=== PATIENT | female | born 1970 | race Caucasian/White ===

== ENCOUNTER 2020-02-19 11:34 | Emergency (ER) | payer OTHER, SELFPAY ==
[2020-02-19] VITALS (10 sets, daily range): BP systolic 142–187; BP diastolic 83–100; PULSE 82–135; RESP 17–25; TEMP 37.4–37.6; O2SAT 96–99
--- NOTE | ~2020-02-19 | CT_ITS ---
EXAMINATION: CTA brain carotid DATE: 02/19/2020 12:56 INDICATION: Dizziness. TECHNIQUE: Computed tomographic angiography (CTA) of the head was performed without and with 100 mL O mnipaque-350 intravenous contrast. CTA of the neck was performed with intravenous contrast. The dose- length product was 1722.11 mGy-cm. Maximum intensity projection and volume rendered 3D-reconstruction s were created by the technologist on a separate workstation. COMPARISON: None. FINDINGS: HEAD CTA: There is no intracranial hemorrhage, acute infarction, or abnormal intracranial mass lesion . There are scattered areas of low attenuation in the cerebral white matter, which is within normal l imits for the patient's age. The ventricles are normal in size. There is mild mucosal thickening in t he ethmoid sinuses. The mastoid air cells are normal. The orbits are normal. Right vertebral artery i s dominant. There is no significant stenosis of basilar artery or the posterior cerebral arteries. Th ere is no significant stenosis of the intracranial internal carotid arteries or anterior or middle ce rebral arteries. Anterior communicating artery is normal. The posterior communicating arteries are no rmal. There is no aneurysm. NECK CTA: There is a 1.3 cm nodule in right thyroid lobe, likely not clinically significant. There is a mildly enlarged left mid internal jugular chain node measuring 10 x 15 mm. There is no significant stenosis of the vertebral arteries. There is mild plaque in proximal left internal carotid artery. T here is 0% stenosis of the proximal right internal carotid artery relative to normal distal artery keila men diameter (NASCET criteria). There is 0% stenosis of the proximal left internal carotid artery rel ative to normal distal artery lumen diameter. There is mild cervical spondylosis. IMPRESSION: 1. Normal aging brain. 2. No aneurysm or significant intracranial arterial stenosis. 3. 0% stenosis of the proximal internal carotid arteries relative to normal distal artery lumen diame ters (NASCET criteria). Reviewed, dictated and finalized at location A. IMPRESSION: 1. Normal aging brain. 2. No aneurysm or significant intracranial arterial stenosis. 3. 0% stenosis of the proximal internal carotid arteries relative to normal dis august artery lumen diameters (NASCET criteria).
--- NOTE | 2020-02-19 11:45 | ECG_ITS ---
Measurements Intervals [place] Rate: 105 P: 18 DE: 140 QRS: -5 QRSD: 84 T: 0 QT: 329 QTc: 436 Interpretive Statements SINUS TACHYCARDIA MINIMAL Q WAVES- INFERIOR LEADS BASELINE WANDER- I, II, V1-V3 BORDERLINE ECG Electronically Signed On 02-19-2020 15:27:25 CDT by Efe Guerrier D.O.
--- NOTE | 2020-02-19 12:05 | ED.GENADULT ---
HPI - General Adult General Chief complaint: Dizziness Stated complaint: intermittent dizziness Time Seen by Provider: 02/19/20 11:46 Source: patient History of Present Illness HPI narrative: Patient is a 49 y/o female complaining of mild dizziness since yesterday. She describes her dizziness as a room spinning sensation. There is no alleviating or exacerbating factor. She also has some headache, nausea, but no vomiting. Related Data Allergies Allergy/AdvReac Type Severity Reaction Status Date / Time prednisone Allergy Difficulty Verified 02/19/20 11:57 Breathing Review of Systems Constitutional: Constitutional: Denies chills, Denies fever(s), Reports headache(s) and Denies weakness Eyes: Eyes: Denies blurry vision ENT: Reports headache(s) and Denies neck pain Cardiovascular: Cardiovascular: Denies chest pain and Denies dyspnea Respiratory: Respiratory: Denies cough and Denies dyspnea Gastrointestinal: Gastrointestinal: Denies abdominal pain, Denies diarrhea, Denies nausea and Denies vomiting Genitourinary: Genitourinary: Denies hematuria and Denies dysuria Musculoskeletal: Musculoskeletal: Denies back pain and Denies neck pain Neurologic: Reports dizziness, Reports headache(s) and Denies weakness Exam Const: General: no acute distress and well developed Orientation/consciousness: oriented to person, oriented to place, oriented to time and patient oriented x3 HENMT: Head: normocephalic Ears: external ears normal General nose exam: Normal external nose present Eyes: General: appearance normal, both eyes and all related structures Conjunctivae: conjunctivae normal Neck: Neck: normal visual inspection and full ROM Chest: Chest palpation & inspection: normal inspection of the chest and no tenderness Resp: Effort & Inspection: normal respiratory effort Auscultation: clear to auscultation bilaterally Cardio: Rate: tachycardic Rhythm: regular rhythm GI: GI Palp: No abdominal tenderness and Yes Soft to palpation Skin: General skin exam: normal color and turgor normal Neuro: General: oriented to person, oriented to place, oriented to time and patient oriented x3 Cranial nerves: Yes CN's II-XII intact bilaterally Cognition (Neuro): normal cognition Speech: normal speech Motor exam (neuro): 5/5 motor strength present throughout Sensory Exam: normal sensation Coordination: [id number] test normal Extrem: General: normal to inspection, full ROM and no pedal edema Psych: Appearance: grossly normal Mental Status: mental status grossly normal Affect: normal affect Course Reevaluation(s) Reevaluation #1: Rechecked. Patient feels better. She has no significant dizziness or headache. Date: 02/19/20 Vital Signs Vital signs: Vital Signs Temperature 37.4 C 02/19/20 11:37 Pulse Rate 115 H 02/19/20 11:37 Respiratory Rate 18 02/19/20 11:37 Blood Pressure 165/97 H 02/19/20 11:37 Pulse Oximetry 98 02/19/20 11:37 Temperature 37.6 C 02/19/20 14:46 Pulse Rate 82 02/19/20 16:20 Respiratory Rate 19 02/19/20 16:20 Blood Pressure 161/83 H 02/19/20 16:20 Pulse Oximetry 99 02/19/20 16:20 Medical Decision Making Vital Signs Vital Signs: Vital Signs Temperature 37.4 C 02/19/20 11:37 Pulse Rate 115 H 02/19/20 11:37 Respiratory Rate 18 02/19/20 11:37 Blood Pressure 165/97 H 02/19/20 11:37 Pulse Oximetry 98 02/19/20 11:37 Temperature 37.6 C 02/19/20 14:46 Pulse Rate 82 02/19/20 16:20 Respiratory Rate 19 02/19/20 16:20 Blood Pressure 161/83 H 02/19/20 16:20 Pulse Oximetry 99 02/19/20 16:20 Lab Data Result diagrams: 02/19/20 12:09 02/19/20 12:09 Labs: Lab Results 02/19/20 02/19/20 Range/Units 12:09 12:09 WBC 4.5 (4.5-10.0) K/mm3 RBC 4.75 (4.2-5.4) M/mm3 Hgb 13.3 (12.0-15.0) g/dL Hct 41.1 (37.0-47.0) % MCV 86.5 (80-100) fl MCH 28.0 (26-34) pg MCHC 32.4 (32-36) g/dl RDW
[2020-02-19] MEDS: ONDANSETRON INJ 4 MG/2 ML VIAL IV PUSH (12:07)
[2020-02-19] MEDS: MECLIZINE HCL 25 MG TABLET PO (12:07)
[2020-02-19 12:22] LABS: Basophils Percent Auto 0.2 % (0.2-1.2); Hematocrit 41.1 % (37.0-47.0); Hemoglobin 13.3 g/dL (12.0-15.0); Immature Granulocyte Absolute 0.01 K/mm3 (0.00-0.031); Immature Granulocyte Percent A 0.2 % (0-0.5); Lymphocytes Absolute Auto 1.25 K/mm3 (0.9-3.2); Lymphocytes Percent Auto 27.5 % (18.3-44.2); Mean Corpuscular HGB Conc 32.4 g/dl (32-36); Mean Corpuscular Volume 86.5 fl (80-100); Mean Platelet Volume 10.9 fl (7.4-10.4); Monocytes Absolute Auto 0.3 K/mm3 (0.1-0.6); Monocytes Percent Auto 6.2 % (2.6-8.5); Neutrophils Percent Auto 65.9 % (45.5-73.1); Platelet Count Result 147 k/mm3 (150-375); Red Blood Count 4.75 M/mm3 (4.2-5.4); Red Cell Distribution Width 14.5 % (11.5-14.5); White Blood Count 4.5 K/mm3 (4.5-10.0)
[2020-02-19 12:35] LABS: Anion Gap 10 mmol/L (8-16); Blood Urea Nitrogen 7 mg/dL (7-17); Calcium 8.7 mg/dL (8.4-10.2); Carbon Dioxide 23 mmol/L (22-30); Chloride 104 mmol/L (98-107); Estimated CRCL calculation 112 ml/min; Estimated Glomerular Filt Rate > 60; Glucose 126 mg/dL (65-105); Sodium 137 mmol/L (137-145)
[2020-02-19] MEDS: diphenhydrAMINE HCl INJ 50 MG/ML VIAL 25 MG IV PUSH (14:06)
[2020-02-19] MEDS: KETOROLAC 30 MG/ML VIAL (*BKC) IV PUSH (14:07)
[2020-02-19] MEDS: METOCLOPRAMIDE HCL INJ 10 MG/2 ML VIAL IV PUSH (14:07)
[2020-02-19] MEDS: SODIUM CHLORIDE 0.9% IV 50 ML 400 ML (14:07)
[2020-02-19] MEDS: amLODIPine BESYLATE 5 MG TABLET PO (14:53)
== END 2020-02-19 16:21 | disposition home or self-care (01) ==
PROVIDERS: Emergency Provider Emergency Medicine; PCP Nurse Practitioner
DX: R42 Dizziness and giddiness (principal); R51 Headache; I10 Essential (primary) hypertension
CPT/HCPCS: 36415; 70496; 70498; 80048; 85025; 93005; 96361; 96374; 96375; 99284; A9270; J1200; J1885; J2405; J2765; Q9967